=== PATIENT | female | born 1955 | race Caucasian/White ===

== ENCOUNTER → 2018-08-29 | Outpatient (CLI) | payer BC ==
--- NOTE | 2018-08-29 15:52 | US ---
EXAMINATION TYPE: US kidneys/renal and bladder DATE OF EXAM: 08/29/2018 COMPARISON: 03/01/2012 CLINICAL HISTORY: N28.1 Cyst of kidney, acquired. EXAM MEASUREMENTS: Right Kidney: 9.7 x 5.3 x 4.4 cm Left Kidney: 9.8 x 4.1 x 5.3 cm Patient of thick body habitus with extensive overlying bowel gas. Technically difficult study. Incidental finding of gallstones. Right Kidney: scattered echogenic foci, possible stones, portions of lower and upper pole obscured by bowel gas Left Kidney: irregular contour, probable complex cyst with internal calcifications measures 2.0 x 1.5 x 2.2cm as opposed to 2.4 x 2.3 x 2.6 cm on the exam of 529 and 12. Bladder: not fully distended, patient felt she was very full There is bilateral cortical renal thinning and diminished cortical medullary differentiation. IMPRESSION: 1. Complex left renal cystic lesion demonstrates no interval growth in comparison to exam of 2011, pr esumably benign. The previously seen right renal lesion is no longer demonstrated. Sequela of medical renal disease is seen with possible punctate nonobstructing right renal calculi that do not demonstr ate shadowing due to their small size. 2. Incidental cholelithiasis.
== END ==
LOC: RADUSWWP 14:34
PROVIDERS: ATTEND Internal Medicine
DX: Q61.8 Other cystic kidney diseases (principal)
CPT/HCPCS: 76770

== ENCOUNTER → 2018-10-13 | Outpatient (CLI) | payer BC ==
--- NOTE | 2018-10-14 10:05 | BD ---
EXAMINATION TYPE: Axial Bone Density DATE OF EXAM: 10/13/2018 COMPARISON: NONE CLINICAL HISTORY: 62 YR OLD FEMALE....ICD-10 CODE: Z13.820 OSTEOPOROSIS SCREENING Height: 64.4 Weight: 176 FRAX RISK QUESTIONS: NOTHING TO NOTE HERE RISK FACTORS HISTORY OF: History of Wrist Fracture: LT FOREARM WITH SURGERY YOUNG WOMAN Diet low in dairy products/other sources of calcium: YES, A BIT Postmenopausal woman: HYST AT 48 YRS OLD MEDICATIONS: Additional Medications: BP MEDS, PERIODICALLY CALCIUM AND VIT D, Additional History: RENAL STONE IN RT, CYSTS ON LT, HYPERTENSION EXAM MEASUREMENTS: Bone mineral densitometry was performed using the [employer] System. Bone mineral density as measured about the Lumbar spine is: ----- L1-L4(G/cm2): 0.880 T Score Values are as follows: ----- L1: -3.0 ----- L2: -3.5 ----- L3: -2.0 ----- L4: -1.8 ----- L1-L4: -2.5 Bone mineral density FIRST BONE DENSITY TEST....BASELINE STUDY Bone mineral density about the R hip (g/cm2): 0.727 Bone mineral density about the L hip (g/cm2): 0.696 T Score values are as follows: -----R Neck: -2.6 -----L Neck: -2.9 -----R Total: -2.2 -----L Total: -2.5 BASELINE STUDY FRAX%s: THERE IS A 14.7% CHANCE FOR A MAJOR OSTEOPOROTIC FX AND A 3.8% FOR HIP ....PROBABILITY OF FX IN 10 YRS TIME IMPRESSION: Osteoporosis (T Score less than -2.5). There is increased fracture risk and therapy is usually indicated based on age. Re-Screen 1-2 years. NOTE: T-SCORE=SD OF THE YOUNG ADULT MEAN.
== END | disposition home or self-care (01) ==
LOC: RADBDWWP 16:05
PROVIDERS: ATTEND Internal Medicine
DX: Z13.820 Encounter for screening for osteoporosis (principal); M81.0 Age-related osteoporosis without current pathological fracture
CPT/HCPCS: 77080

== ENCOUNTER → 2020-04-03 | Outpatient (CLI) | payer BC ==
--- NOTE | 2020-04-03 15:40 | US ---
EXAMINATION TYPE: US kidneys/renal and bladder DATE OF EXAM: 04/03/2020 COMPARISON: US, CT CLINICAL HISTORY: N28.1 Cyst of kidney, acquired. EXAM MEASUREMENTS: Right Kidney: 10.0 x 4.5 x 4.5 cm Left Kidney: 9.7 x 4.6 x 4.2 cm Post Void Residual Volume: 139.2 mL Right Kidney: No hydronephrosis or masses seen Left Kidney: prominent left renal pelvis is noted; renal cortical cyst noted inferior pole = 1.6 x 1. 5 x 1.8cm. Hyperechoic parallel vessel wall calcifications noted inferior pole and in superior pole Bladder: wnl Bilateral Jets seen: yes Normal Post Void Residual: no, as volume is greater than 50.0ml. The urinary bladder is anechoic. Bilateral ureteral jets are seen. IMPRESSION: 1. Fullness of the left renal pelvis. 2. Renal cortical cyst left kidney.
== END | disposition home or self-care (01) ==
LOC: RADUSWWP 14:48
PROVIDERS: ATTEND Internal Medicine
DX: N28.1 Cyst of kidney, acquired (principal)
CPT/HCPCS: 76770

== ENCOUNTER → 2020-04-26 | Outpatient (CLI) | payer BC ==
--- NOTE | 2020-05-02 10:30 | MM ---
Reason for exam: screening (asymptomatic). Last mammogram was performed 8 years and 9 months ago. History: Patient is postmenopausal. Family history of breast cancer in paternal grandmother. Physical Findings: A clinical breast exam by your physician is recommended on an annual basis and results should be correlated with mammographic findings. MG 3D Screening Mammo W/Cad Bilateral CC and MLO view(s) were taken. Prior study comparison: August 04, 2011, bilateral digital screening mammo w/CAD. March 26, 2010, bilateral digital screening mammogram. The breast tissue is extremely dense which could obscure a lesion on mammography. No significant changes when compared with prior studies. ASSESSMENT: Benign, BI-RAD 2 RECOMMENDATION: Routine screening mammogram of both breasts in 1 year.
== END | disposition home or self-care (01) ==
LOC: RADMAMWWP 10:42
PROVIDERS: ATTEND Internal Medicine
DX: Z12.31 Encounter for screening mammogram for malignant neoplasm of breast (principal)
CPT/HCPCS: 77063; 77067

== ENCOUNTER → 2020-12-25 | Outpatient (CLI) | payer MEDICARE, BC ==
--- NOTE | 2020-12-26 07:54 | BD ---
EXAMINATION TYPE: Axial Bone Density DATE OF EXAM: 12/25/2020 COMPARISON: NONE CLINICAL HISTORY: Height: 5 FT 4 IN Weight: 175 FRAX RISK QUESTIONS: Alcohol (3 or more units per day): NO Family History (Parent hip fracture): NO Glucocorticoids (More than 3mos): NO (Ex: prednisone, prednisolone, methylprednisolone, dexamethasone, and hydrocortisone). History of Fracture in Adulthood: NO Secondary Osteoporosis: 1. Type 1 Diabetes: NO 2. Hyperthyroidism: NO 3. Menopause before 45: NO 4. Malnutrition: NO 5. Chronic liver disease: NO Rheumatoid Arthritis: NO Current Tobacco Use: NO RISK FACTORS HISTORY OF: Surgery to Spine/Hip(right/left)/Wrist (right/left): NO Family History of Osteoporosis: YES Active: YES Diet low in dairy products/other sources of calcium: NO Postmenopausal woman: TOTAL HYST AGE 48 Take estrogen and/or progesterone medications: NO Lost more than 2 inches in height since high school: YES MEDICATIONS: Osteoporosis Medications: YES Which medication: FOSAMAX How Lon YEAR Additional Medications: LISINOPRIL, FOSAMAX ,VIT D Additional History: EXAM MEASUREMENTS: Bone mineral densitometry was performed using the [email or web address] System. Bone mineral density as measured about the Lumbar spine is: ----- L1-L4(G/cm2): 0.904 T Score Values are as follows: ----- L2: -3.3 ----- L3: -1.8 ----- L4: -1.8 ----- L1-L4: -2.3 Bone mineral density has: INCREASED 2.7 % since study of: 2018 Bone mineral density about the R hip (g/cm2): 0.690 Bone mineral density about the L hip (g/cm2): 0.654 T Score values are as follows: -----R Neck: -2.5 -----L Neck: -2.8 -----R Total: -2.0 -----L Total: -2.3 Bone mineral density has:INCREASED 2.9 % since study of: 2019 IMPRESSION: Osteopenia NOTE: T-SCORE=SD OF THE YOUNG ADULT MEAN.
== END | disposition home or self-care (01) ==
LOC: RADBDWWP 15:59
PROVIDERS: ATTEND Internal Medicine
DX: M81.0 Age-related osteoporosis without current pathological fracture (principal); M85.89 Other specified disorders of bone density and structure, multiple sites
CPT/HCPCS: 77080

== ENCOUNTER → 2022-06-02 | Outpatient (CLI) | payer MEDICARE, BC ==
--- NOTE | 2022-06-03 09:46 | MM ---
Reason for Exam: Screening (asymptomatic). Last mammogram was performed 2 year(s) and 1 month(s) ago. Patient History: Menarche at age 11. First Full-Term at age 30. Late child-bearing (after 30). Left ovary removed at age 49. Right ovary removed at age 49. Hysterectomy at age 49. Postmenopausal. Paternal grandmother had breast cancer. Risk Values: Natalie 5 year model risk: 2.5%. NCI Lifetime model risk: 9.0%. Prior Study Comparison: 03/26/2010 Bilateral Screening Mammogram, [facility]. 08/04/2011 Bilateral Screening Mammogram, [facility]. 04/26/2020 Bilateral Screening Mammogram, [facility]. Tissue Density: The breast tissue is extremely dense which could obscure a lesion on mammography. Findings: Analyzed By CAD. There is some asymmetry of the parenchymal tissue is some focal asymmetry in the upper outer anterior left breast compared to the right. No suspicious groups of microcalcifications, spiculated or lobular masses, architectural distortion or other secondary signs of malignancy are mammographically apparent. Overall Assessment: Benign, BI-RAD 2 Management: Screening Mammogram of both breasts in 1 year. A negative mammogram report should not preclude additional follow up of suspicious palpable abnormalities. Patient should continue monthly self breast exam. A clinical breast exam by your physician is recommended on an annual basis and results should be correlated with mammographic findings. Electronically signed and approved by: Maximus Becker D.O. Radiologis
== END | disposition home or self-care (01) ==
LOC: RADMAMWWP 15:05
PROVIDERS: ATTEND Internal Medicine Geriatric Medicine
DX: Z12.31 Encounter for screening mammogram for malignant neoplasm of breast (principal); Z78.0 Asymptomatic menopausal state; Z80.3 Family history of malignant neoplasm of breast
CPT/HCPCS: 77063; 77067

== ENCOUNTER → 2023-07-26 | Outpatient (CLI) | payer MEDICARE, BC ==
--- NOTE | 2023-07-26 12:59 | MM ---
Reason for Exam: Additional evaluation requested from abnormal screening. Last screening mammogram was performed less than 1 month ago. Patient History: Menarche at age 11. First Full-Term at age 30. Late child-bearing (after 30). Left ovary removed at age 49. Right ovary removed at age 49. Hysterectomy at age 49. Postmenopausal. Paternal grandmother had breast cancer. Risk Values: Natalie 5 year model risk: 2.6%. NCI Lifetime model risk: 8.7%. Prior Study Comparison: 04/26/2020 Bilateral Screening Mammogram, [facility]. 06/02/2022 Bilateral MG 3D screening mammo w/cad, [facility]. 07/15/2023 Bilateral MG 3D screening mammo w/cad, [facility]. Tissue Density: Left: The breast tissue is heterogeneously dense. This may lower the sensitivity of mammography. Findings: Analyzed By CAD. Focal asymmetry in the left lower outer quadrant 6.5cm from the nipple measuring 20 x 11mm. Overall Assessment: Incomplete: need additional imaging evaluation, BI-RAD 0 Management: Diagnostic Breast Ultrasound of the left breast. A clinical breast exam by your physician is recommended on an annual basis and results should be correlated with mammographic findings. This exam should not preclude additional follow-up of suspicious palpable abnormalities. Results were given to the patient verbally at the time of exam. Electronically signed and approved by: Darwin Louie DO
--- NOTE | 2023-07-26 13:02 | USB ---
Reason for Exam: Additional evaluation requested from abnormal screening. Patient History: Menarche at age 11. First Full-Term at age 30. Late child-bearing (after 30). Left ovary removed at age 49. Right ovary removed at age 49. Hysterectomy at age 49. Postmenopausal. Paternal grandmother had breast cancer. Risk Values: Natalie 5 year model risk: 2.6%. NCI Lifetime model risk: 8.7%. Prior Study Comparison: 04/26/2020 Bilateral Screening Mammogram, [facility]. 06/02/2022 Bilateral MG 3D screening mammo w/cad, [facility]. 07/15/2023 Bilateral MG 3D screening mammo w/cad, [facility]. Findings: The lower section of the breast of the left breast was scanned. Left limited breast ultrasound demonstrates no cystic or solid lesion seen. Overall Assessment: Benign, BI-RAD 2 Management: Screening Mammogram of both breasts in 1 year. A clinical breast exam by your physician is recommended on an annual basis and results should be correlated with mammographic findings. This exam should not preclude additional follow-up of suspicious palpable abnormalities. Results were given to the patient verbally at the time of exam. Electronically signed and approved by: Darwin Louie DO
== END | disposition home or self-care (01) ==
LOC: RADMAMWWP 10:07
PROVIDERS: ATTEND Internal Medicine Geriatric Medicine
DX: R92.332 Mammographic heterogeneous density, left breast (principal); Z78.0 Asymptomatic menopausal state; Z80.3 Family history of malignant neoplasm of breast
CPT/HCPCS: 77065; 76642; G0279; 77061